=== PATIENT | female | born 1950 | race Two or more races ===

== ENCOUNTER 2018-11-22 13:17 | Outpatient (CLI) | payer OTHER | END 2018-11-22 13:22 | disposition home or self-care (01) | LOC: LAB 13:17 | DX: C20 Malignant neoplasm of rectum (principal) ==

== ENCOUNTER 2018-12-01 09:39 | Outpatient (CLI) | payer OTHER | END 2018-12-01 10:16 | disposition home or self-care (01) | LOC: MRI 09:39 | DX: C20 Malignant neoplasm of rectum (principal); N82.3 Fistula of vagina to large intestine | CPT/HCPCS: 72197; A9575 ==